=== PATIENT | female | born 1960 | race African-American/Black ===

== ENCOUNTER 2023-03-27 03:23 | Emergency (ER) | payer OTHER ==
[~2023-03-27] VITALS: Ht 167.6 cm; Wt 61.2 kg
--- NOTE | 2023-03-27 04:00 | NUR ---
RENE FROM HOME C/O ANXIETY ATTACK 3AM. ON RX ZOLOFT 50MG.
--- NOTE | 2023-03-27 04:36 | NUR ---
Patient discharged to home in stable condition. Written and verbal after care instructions given. Patient verbalizes understanding of instruction.
[2023-03-27 04:39] VITALS: BP 151/79
== END 2023-03-27 04:30 | disposition home or self-care (01) ==
LOC: ER 03:25
DX: F41.0 Panic disorder [episodic paroxysmal anxiety] (principal); F41.9 Anxiety disorder, unspecified; Z98.890 Other specified postprocedural states

== ENCOUNTER 2023-09-02 16:38 | Emergency (ER) | payer OTHER ==
[~2023-09-02] VITALS: Ht 167.6 cm; Wt 59.0 kg
[2023-09-02 17:19] VITALS: BP 130/89; TEMP 97.8; O2SAT 100
== END 2023-09-02 18:42 | disposition home or self-care (01) ==
LOC: ER 16:38
DX: R00.2 Palpitations (principal); F41.9 Anxiety disorder, unspecified; Z98.890 Other specified postprocedural states
CPT/HCPCS: 36415; 84484-TC

== ENCOUNTER 2024-09-25 09:32 | Emergency (ER) | payer OTHER ==
[~2024-09-25] VITALS: Ht 167.6 cm; Wt 66.2 kg
[2024-09-25] MEDS ORDERED: ONDANSETRON HCL/PF 4 MG/2 ML VIAL ONE ×2 (10:00→11:47)
[2024-09-25] MEDS: IV NS 0.9% 1,000 ML BAG IV ONE (10:10)
[2024-09-25] MEDS: ONDANSETRON HCL/PF 4 MG/2 ML VIAL IVP ONE (10:15)
[2024-09-25 10:19] LABS: BASOPHILS % (AUTO) 0.7 % (0.0-2.0); EOSINOPHILS % (AUTO) 0.7 % (0.0-6.0); HEMATOCRIT 44 % (33-45); HEMOGLOBIN 14.7 g/dL (11.5-14.8); LYMPHOCYTES # (AUTO) 1.7 K/uL (0.8-4.8); LYMPHOCYTES % (AUTO) 31.4 % (20.0-44.0); MEAN CORPUSCULAR HEMOGLOBIN 31 PG (26.0-33.0); MEAN CORPUSCULAR HGB CONC 33 g/dl (31.0-36.0); MEAN CORPUSCULAR VOLUME 92 fL (82-100); MONOCYTES # (AUTO) 0.4 K/uL (0.1-1.30); MONOCYTES % (AUTO) 7.3 % (2.0-12.0); NEUTROPHILS # (AUTO) 3.2 K/uL (1.8-8.9); NEUTROPHILS % (AUTO) 59.9 % (43.0-81.0); PLATELET COUNT (AUTO) 203 K/uL (150-450); RED BLOOD CELL COUNT(AUTO) 4.82 MIL/uL (4.0-5.2); RED CELL DISTRIBUTION WIDTH 13.1 % (11.5-15.0); WHITE BLOOD COUNT (AUTO) 5.3 K/uL (4.3-11.0)
[2024-09-25 10:37] LABS: ALANINE AMINOTRANSFERASE 29 U/L (12-78); ALBUMIN 4.1 g/dL (3.4-5.0); ALKALINE PHOSPHATASE 84 U/L (46-116); ASPARTATE AMINOTRANSFERASE 25 U/L (15-37); BILIRUBIN,DIRECT 0.1 mg/dL (0.0-0.2); BILIRUBIN,TOTAL 0.6 mg/dL (0.2-1.0); CALCIUM, SERUM 10.1 mg/dL (8.5-10.1); CARBON DIOXIDE 31 mmol/L (21-32); CHLORIDE 100 mmol/L (98-107); CREATININE 0.9 mg/dL (0.6-1.3); GLUCOSE 139 mg/dL (74-106); LIPASE 34 U/L (16-77); POTASSIUM 3.8 mmol/L (3.5-5.1); SODIUM SERUM 139 mmol/L (136-145); TOTAL PROTEIN, SERUM 8.2 g/dL (6.4-8.2); UREA NITROGEN, BLOOD 23 mg/dL (7-18)
[2024-09-25 10:42] LABS: THYROID STIMULATING HORMONE 0.49 uIU/mL (0.358-3.74)
[2024-09-25 11:41] LABS: APPEARANCE,URINE CLEAR (CLEAR); BILIRUBIN,URINE NEGATIVE (NEGATIVE); BLOOD, URINE NEGATIVE Ery/uL (NEGATIVE); COLOR,URINE YELLOW (YELLOW); KETONES,URINE NEGATIVE (NEGATIVE); LEUKOCYTE ESTERASE ,URINE 2+ (NEGATIVE); NITRITE, URINE NEGATIVE (NEGATIVE); PROTEIN,URINE NEGATIVE (NEGATIVE); UGLUCOSE NEGATIVE (NEGATIVE); UROBILINOGEN,URINE 0.2 EU/dL (0.2)
[2024-09-25 11:48] LABS: ADD URINE CULTURE YES; BACTERIA,URINE 1+ /HPF (None Seen)
[2024-09-25 12:48] VITALS: BP 139/53; TEMP 98.3; O2SAT 96
== END 2024-09-25 12:49 | disposition home or self-care (01) ==
LOC: ER 09:40
DX: S09.90XA Unspecified injury of head, initial encounter (principal); R11.2 Nausea with vomiting, unspecified; R60.0 Localized edema; E86.0 Dehydration; I10 Essential (primary) hypertension; F41.9 Anxiety disorder, unspecified; Z90.89 Acquired absence of other organs; Z90.721 Acquired absence of ovaries, unilateral; Z90.49 Acquired absence of other specified parts of digestive tract
CPT/HCPCS: 99285; 96374; 70450; 71045; 96361; 93005; 85025; 80048; 87086; 83690; 80076; 83735; 81001; 36415; 84443; 84484; J2405; J7030; A4223